=== PATIENT | male | born 1990 | race Caucasian/White ===

== ENCOUNTER 2018-01-31 16:39 | Emergency (ER) | payer OTHER ==
[~2018-01-31] VITALS: Ht 172.7 cm; Wt 58.2 kg
[2018-01-31 17:14] LABS: HEMOGLOBIN 13.5 G/DL (12.5-16.6); MCH 32.4 PG (29.0-34.0); MCHC 35.5 G/DL (30.0-36.0); MCV 91.1 FL (86-99); PLATELET COUNT 234 K/uL (156-360); RBC DIS.WIDTH-CV 12.1 % (11.8-14.6); RBC DIS.WIDTH-SD 40.7 % (39-53); RED BLOOD COUNT 4.17 M/uL (4.00-5.50); WHITE BLOOD COUNT 5.9 K/uL (4.1-10.2)
[2018-01-31 17:22] LABS: ALBUMIN 4.2 g/dL (3.2-4.8); CHLORIDE 106 mEq/L (99-109); POTASSIUM 4.1 mEq/L (3.7-5.4); SODIUM 141 mEq/L (136-147)
[2018-01-31 17:25] LABS: GLUCOSE 95 mg/dL (70-99); TOTAL PROTEIN 6.4 g/dL (6.4-8.3)
[2018-01-31 17:27] LABS: TOTAL BILIRUBIN 0.6 mg/dL (0.0-1.0)
[2018-01-31 17:28] LABS: ALKALINE PHOSPHATASE 51 IU/L (3-129); CREATININE 0.9 mg/dL (0.6-1.3); GFR ESTIMATE (CALCULATED) > 59 mL/min/ (58.99-99999)
[2018-01-31 17:29] LABS: UREA NITROGEN (BUN) 12 mg/dL (9-23)
[2018-01-31 17:30] LABS: AST (GOT) 20 IU/L (2-34)
[2018-01-31 17:31] LABS: ALT (GPT) 13 IU/L (3-49)
[2018-01-31 18:37] LABS: APPEARANCE CLOUDY ((CLEAR)); BILIRUBIN NEGATIVE; BLOOD MODERATE; COLOR YELLOW ((YELLOW)); GLUCOSE (STRIP) NEGATIVE; KETONES NEGATIVE; LEUKOCYTES TRACE; NITRITE NEGATIVE; PROTEIN (STRIP) 30; SPECIFIC GRAVITY 1.023 (1.000-1.030); UROBILINOGEN 0.2 MG/DL (0.2-1.0)
[2018-01-31 19:15] LABS: AMORPHOUS PHOSPHATE CRYSTALS 4+; BACTERIA 1+ /HPF; EPITHELIAL CELLS NONE SEEN /HPF; MUCUS NONE SEEN /LPF; RED BLOOD CELLS NONE SEEN /HPF (0-5); UCUL ADDED? NO; WHITE BLOOD CELLS NONE SEEN /HPF (0-5)
[2018-01-31] MEDS ORDERED: ZOFRAN ODT4 MG PO (21:00)
[2018-01-31 21:13] VITALS: BP 111/84
== END 2018-01-31 21:14 | disposition home or self-care (01) ==
LOC: EME 16:39
DX: K40.90 Unilateral inguinal hernia, without obstruction or gangrene, not specified as recurrent (principal); F17.200 Nicotine dependence, unspecified, uncomplicated; Z91.040 Latex allergy status
CPT/HCPCS: 74177; 80053; 81003; 85027; 87086; 99281; 99284; J2405; J7030